=== PATIENT | male | born 1945 | race African-American/Black ===

== ENCOUNTER 2020-03-01 14:29 | Inpatient (IN) | payer OTHER ==
[~2020-03-01 14:29] MED LIST: ACCUPRIL40 MG PO; ACID CONTROLLER20 MG PO; ARTIFICIAL TEAR15 M2 EYEBOTH; AUGMENTIN 875-1 EACH PO; CLARITIN10 M2 PO; ECOTRIN81 MG PO; FERROUS SULFAT325 M2 PO; HYDROCHLOROTHIA25 MG PO; K-DUR TAB 10 M10 MEQ PO; KLOR-CON 1010 MEQ PO; LASIX 40 MG TAB40 MG PO; LOPRESSOR 25 MG25 MG PO; METOPROLOL SUC100 MG PO; MICROZIDE12.5 MG PO; NORVASC10 MG PO; PROCTOCREAM-HC30 G1 TP; TOPROL XL 25 MG25 MG PO; TOPROL XL100 MG PO; TOPROL XL25 MG PO; TYLENOL 8 HOUR650 MG PO; VITAMIN D32000 UNI1 PO; ZANTAC300 MG PO; ZOCOR20 MG PO; ZYLOPRIM 100 M100 MG PO
[2020-03-01 15:29] LABS: HEMOGLOBIN 11.8 gm/dl (14.0-17.5); RED BLOOD COUNT 4.77 M/UL (4.20-5.50); WHITE BLOOD COUNT 8.9 K/UL (4.5-11.0)
[2020-03-01 15:50] LABS: BUN/CREATININE RATIO 37 (0-10)
[2020-03-02 04:53] LABS: WHITE BLOOD COUNT 7.7 K/UL (4.5-11.0)
[2020-03-02 04:56] LABS: HEMOGLOBIN 9.6 gm/dl (14.0-17.5); RED BLOOD COUNT 3.84 M/UL (4.20-5.50)
[2020-03-02 05:03] LABS: BUN/CREATININE RATIO 34 (0-10)
[2020-03-02] MEDS ORDERED: NORVASC10 MG PO (12:14)
[2020-03-02] MEDS ORDERED: ZYLOPRIM100 MG PO (12:16)
[2020-03-02] MEDS ORDERED: HYDROCHLOROTHIA25 MG PO (12:16)
[2020-03-02] MEDS ORDERED: VITAMIN D350 MCG PO (12:17)
[2020-03-03 04:39] LABS: HEMOGLOBIN 9.8 gm/dl (14.0-17.5); RED BLOOD COUNT 3.94 M/UL (4.20-5.50); WHITE BLOOD COUNT 7.7 K/UL (4.5-11.0)
[2020-03-03 05:04] LABS: BUN/CREATININE RATIO 32 (0-10)
[2020-03-03 12:20] LABS: BODY FLUID SOURCE ASCITES
[2020-03-03 12:21] LABS: MONONUCLEAR CELLS 90.4 (75-100); POLYMORPHONUCLEAR % 9.6 (0-25); RBC (AUTOMATED) 21900 (0-100000); WBC (AUTOMATED) 586 (0-500)
[2020-03-03 13:41] LABS: LDH, BODY FLUID 3451 U/L; TOTAL PROTEIN, BODY FLUID 4.5 gm/dL
--- NOTE | 2020-03-03 17:28 | NUR ---
PATIENT HAVE EPISODE OF HEART RATE [id number]. REPORTED THIS TO DR. GUTIERREZ AND RECEIVED ORDER
[2020-03-04 06:54] LABS: HEMOGLOBIN 9.9 gm/dl (14.0-17.5); RED BLOOD COUNT 4.09 M/UL (4.20-5.50); WHITE BLOOD COUNT 7.9 K/UL (4.5-11.0)
[2020-03-04 07:16] LABS: BUN/CREATININE RATIO 32 (0-10)
[2020-03-05 04:00] LABS: HEMOGLOBIN 9.7 gm/dl (14.0-17.5); RED BLOOD COUNT 3.88 M/UL (4.20-5.50); WHITE BLOOD COUNT 7.6 K/UL (4.5-11.0)
[2020-03-05 04:17] LABS: BUN/CREATININE RATIO 33 (0-10)
[2020-03-06 06:18] LABS: BUN/CREATININE RATIO 30 (0-10)
[2020-03-06 06:22] LABS: HEMOGLOBIN 9.8 gm/dl (14.0-17.5); RED BLOOD COUNT 3.88 M/UL (4.20-5.50); WHITE BLOOD COUNT 6.7 K/UL (4.5-11.0)
[2020-03-07 03:16] LABS: HEMOGLOBIN 9.6 gm/dl (14.0-17.5); RED BLOOD COUNT 3.83 M/UL (4.20-5.50); WHITE BLOOD COUNT 7.3 K/UL (4.5-11.0)
[2020-03-07 03:37] LABS: BUN/CREATININE RATIO 33 (0-10)
[2020-03-08 04:36] LABS: HEMOGLOBIN 9.8 gm/dl (14.0-17.5); RED BLOOD COUNT 3.85 M/UL (4.20-5.50); WHITE BLOOD COUNT 7.8 K/UL (4.5-11.0)
[2020-03-08 05:18] LABS: BUN/CREATININE RATIO 33 (0-10)
[2020-03-09 02:26] LABS: HEMOGLOBIN 9.1 gm/dl (14.0-17.5); RED BLOOD COUNT 3.55 M/UL (4.20-5.50)
[2020-03-09 02:45] LABS: BUN/CREATININE RATIO 40 (0-10)
[2020-03-09] MEDS ORDERED: MEGACE 400400 MG/10 PO (09:35)
[2020-03-09] MEDS ORDERED: DRONABINOL2.5 MG PO (09:35)
--- NOTE | 2020-03-09 23:48 | NUR ---
PT HAS A 20G IV TO HIS RIGHT UPPER ARM. THE AREA AROUND THE IV IS SLIGHTLY EDEMATOUS. PT DENIES DISCOMORT, AREA IS NOT TENDER TO THE TOUCH, IV FLUSHES FINE. WILL CONTINUE TO MONITOR SITE.
[2020-03-10 05:57] LABS: HEMOGLOBIN 9.3 gm/dl (14.0-17.5); RED BLOOD COUNT 3.68 M/UL (4.20-5.50); WHITE BLOOD COUNT 6.9 K/UL (4.5-11.0)
[2020-03-10 06:16] LABS: BUN/CREATININE RATIO 39 (0-10)
[2020-03-10] MEDS ORDERED: ROXANOL SOLN20 MG/M1 PO ×2 (11:48→12:25)
[2020-03-10] MEDS ORDERED: MAGIC MOUTHWASH PO (11:48)
== END 2020-03-11 13:57 | disposition home or self-care (01) | DRG 374 ==
LOC: ER1 14:29 → ZEROF 18:20 → M/S 03-03 13:06
PROVIDERS: Family Medicine; Internal Medicine Gastroenterology; ADMIT Internal Medicine Infectious Disease
PROC: 0W9G3ZZ Drainage of Peritoneal Cavity, Percutaneous Approach (ICD-10-PCS; 2020-03-03)
PROC: 0W9G3ZX Drainage of Peritoneal Cavity, Percutaneous Approach, Diagnostic (ICD-10-PCS; 2020-03-03)
PROC: 8E0ZXY6 Isolation (ICD-10-PCS; 2020-03-03)
PROC: 0DH67UZ Insertion of Feeding Device into Stomach, Via Natural or Artificial Opening (ICD-10-PCS; 2020-03-06)
PROC: 3E0G76Z Introduction of Nutritional Substance into Upper GI, Via Natural or Artificial Opening (ICD-10-PCS; 2020-03-06)
PROC: 0DJ08ZZ Inspection of Upper Intestinal Tract, Via Natural or Artificial Opening Endoscopic (ICD-10-PCS; principal; 2020-03-08 12:00)
DX: C48.2 Malignant neoplasm of peritoneum, unspecified (principal); U07.1 COVID-19; R18.0 Malignant ascites; E44.0 Moderate protein-calorie malnutrition; Z68.1 Body mass index [BMI] 19.9 or less, adult; R62.7 Adult failure to thrive; R00.0 Tachycardia, unspecified; I95.9 Hypotension, unspecified; D64.9 Anemia, unspecified; R68.81 Early satiety; E16.2 Hypoglycemia, unspecified; R13.10 Dysphagia, unspecified; I10 Essential (primary) hypertension; E78.5 Hyperlipidemia, unspecified; R63.0 Anorexia; E86.1 Hypovolemia; E86.0 Dehydration; M10.9 Gout, unspecified; Z90.49 Acquired absence of other specified parts of digestive tract; Z82.49 Family history of ischemic heart disease and other diseases of the circulatory system; Z79.82 Long term (current) use of aspirin; Z79.899 Other long term (current) drug therapy; Z86.010 Personal history of colon polyps
CPT/HCPCS: 36415; 71045; 71250; 74018; 80053; 82550; 82553; 82945; 82962; 83615; 83735; 83874; 84100; 84157; 84439; 84443; 84484; 85025; 85610; 85730; 87070; 88341; 88342; 89051; 92610; 93005; 96374; 96375; 96376; 97110-GP-CQ; 97116-GP-CQ; 97162; 97530-GP-CQ; 99285; C9113; G0378; J1650; J2250; J2270; J2405; J2765; J3010; J3475; J7040; J7050; P9047; U0002